=== PATIENT | female | born 1965 | race Two or more races ===

== ENCOUNTER → 2017-05-08 | Outpatient (CLI) | payer BC ==
[2013-06-12 12:20] VITALS: BP 118/60
== END ==
LOC: RT 07:22
PROVIDERS: ATTEND Nurse Practitioner Family
DX: R40.0 Somnolence (principal); R06.83 Snoring; R00.2 Palpitations; I10 Essential (primary) hypertension
CPT/HCPCS: 95810

== ENCOUNTER → 2017-05-30 | Outpatient (CLI) | payer BC ==
[2013-06-12 12:20] VITALS: BP 118/60
[~2017-05-30] MED LIST: NS 100 ML IV 100 ML IV ONE
[2017-05-30 10:47] LABS: CREATININE 0.48 mg/dL (0.55-1.02)
== END ==
LOC: RAD 10:20
PROVIDERS: ATTEND Nurse Practitioner Family
DX: R31.9 Hematuria, unspecified (principal); R10.84 Generalized abdominal pain; R10.12 Left upper quadrant pain; R10.13 Epigastric pain; R19.7 Diarrhea, unspecified
CPT/HCPCS: 36415; 82565; 84520; A4222

== ENCOUNTER → 2017-06-01 | Outpatient (CLI) | payer BC ==
[2013-06-12 12:20] VITALS: BP 118/60
--- NOTE | 2017-06-01 12:32 | CT ---
HISTORY: Left upper quadrant pain Study: CT abdomen and pelvis with IV and oral contrast Comparison: None Technique: Multiple axial images of the abdomen and pelvis were obtained from the lung bases to the pubic symph ysis with the administration of IV contrast. Sagittal and coronal reformations were provided. Findings: The visualized portions of the lung bases are unremarkable. There is a tiny hiatal hernia. There is mild fatty infiltration of the liver. The kidneys and adrenal glands and pancreas and spleen are un remarkable.. The gallbladder is surgically absent.. No significant mesenteric lymphadenopathy or st randing can be observed. No free fluid or free air is seen within the abdomen. The appendix is nor mal. There is a 1 centimeter low-attenuation nodule in the right fundus of the uterus. There is a 1. 7 centimeter left ovarian cyst. No bowel wall thickening or bowel dilatation is present. The colon is unremarkable. Specifically, there is no diverticulosis noted within the sigmoid colon. The urina ry bladder is grossly unremarkable. The bony structures are grossly intact. IMPRESSION: 1. Tiny hiatal hernia and fatty infiltration of the liver. Reported By:
== END | disposition home or self-care (01) ==
LOC: RAD 09:28
PROVIDERS: ATTEND Nurse Practitioner Family
DX: R10.84 Generalized abdominal pain (principal); R31.9 Hematuria, unspecified; R10.12 Left upper quadrant pain; R10.13 Epigastric pain; R19.7 Diarrhea, unspecified; K44.9 Diaphragmatic hernia without obstruction or gangrene; K76.0 Fatty (change of) liver, not elsewhere classified
CPT/HCPCS: 74177; A4222

== ENCOUNTER 2017-07-12 08:30 | Day surgery (SDC) | payer BC ==
[2017-07-12] MEDS ORDERED: D5 LR 1000 ML 1,000 ML IV ONE (08:38)
[2017-07-12] MEDS ORDERED: DIPRIVAN VIAL 20 ML ONE (11:05)
[2017-07-12 12:02] VITALS: BP 112/64
== END 2017-07-12 12:05 | disposition home or self-care (01) ==
LOC: SURG1 08:30
PROVIDERS: ATTEND Internal Medicine Gastroenterology
PROC: 0DBP8ZX Excision of Rectum, Via Natural or Artificial Opening Endoscopic, Diagnostic (ICD-10-PCS; principal; 2017-07-12 11:15)
PROC: 0DJD8ZZ Inspection of Lower Intestinal Tract, Via Natural or Artificial Opening Endoscopic (ICD-10-PCS; principal; 2017-07-12 11:15)
DX: Z86.010 Personal history of colon polyps (principal); K63.5 Polyp of colon; K64.0 First degree hemorrhoids
CPT/HCPCS: A4217; J3490; J7120